=== PATIENT | female | born 1995 | race Caucasian/White ===

== ENCOUNTER 2019-04-19 12:57 | Emergency (ER) | payer MEDICAID ==
[2019-04-19] MEDS ORDERED: Sodium Chloride 0.9% 500 ML IV SCH (13:15)
[2019-04-19] MEDS ORDERED: Prochlorperazine 10 MG/2 ML SDV IVPUSH ONE (13:17)
[2019-04-19] MEDS ORDERED: Ketorolac 60 MG/2 ML SDV IVPUSH ONE (13:18)
[2019-04-19] MEDS ORDERED: diphenhydrAMINE 50 MG/ML SDV IVPUSH ONE (13:19)
[2019-04-19] MEDS ORDERED: Ondansetron 4 MG Tab.DIS ONE (14:40)
--- NOTE | 2019-04-19 20:37 | ER ---
REASON FOR EMERGENCY ROOM VISIT: Migraine. HISTORY: This 24-year-old girl comes in accompanied by her father. She states that she has had a history of migraine headaches for the past 5 years or so. On the April,, she drank quite a bit of alcohol and awoke at approximately 6 to 8 a.m. yesterday morning with some nausea and she had several episodes of nausea and vomiting yesterday. Along with this, she had a headache that she developed in the right posterior occipital area which is typical for her migraines. Eventually, the headache waxed and waned throughout the day and progressed slowly to involve to be some more diffuse. She experiences severe photophobia as well as some nausea. She generally feels weak. Loud noises also increase her headache symptoms. She states that typically she will get one headache per week and claims that these are migraines, but her last ER visit for migraine was 5 months ago. She has never been on any Imitrex for some reason. MEDICATIONS: None. ALLERGIES: NONE. REVIEW OF SYSTEMS: Pertinent positives and negatives as listed in the HPI. PHYSICAL EXAMINATION: VITAL SIGNS: She is afebrile. Vitals as listed in the EMR. GENERAL: She is lying on her left side quietly, but is alert and cooperative. HEENT: Head is normocephalic. There is no tenderness to palpation. TMs are normal. Pupils equally round and reactive to light. Funduscopic examination is normal with no papilledema or hemorrhages. Oropharynx is normal. NECK: Supple. Nontender. No bruits. NEUROLOGIC: Cranial nerves 2 through 2 are intact. Deep tendon reflexes are symmetrical bilaterally in the upper and lower extremities. Muscle strength, bulk and tone are normal and symmetrical bilaterally in the upper and lower extremities. Sensation is normal to crude touch. Station and gait were not tested. IMPRESSION: Migraine headache. PLAN: An IV was inserted and she was given 500 mL of normal saline, followed by Compazine 10 mg IV, Benadryl 50 mg IV, and Toradol 60 mg IV. Additionally, she was given Zofran ODT tablets, dispensed #5, 4 mg 1 every 6 hours p.r.n. for nausea. Within an hour, her symptoms resolved completely, and she was eager to be discharged with no residual headache. I advised her plan. I advised her to follow up with her primary care provider who is in [place]. She assures me she will. All questions were answered. They understand and agree with this plan. LIDYA/SANFORD /[id number]
== END 2019-04-19 14:45 | disposition home or self-care (01) ==
LOC: LB.ED 12:57
DX: G43.909 Migraine, unspecified, not intractable, without status migrainosus (principal)
CPT/HCPCS: 96361; 96374; 96375; 99283; A9270; J0780; J1200; J1885; J7030